=== PATIENT | female | born 1940 | race Caucasian/White ===

== ENCOUNTER 2018-03-25 08:35 | Day surgery (SDC) | payer BC, MEDICARE ==
[~2018-03-25 08:35] MED LIST: Acetaminophen TAB* 325 MG PO PRN; Buffered Lidocaine 0.9% SYRIN* 5 ML/SYR SYRINGE INTRADERM ONE
[2018-03-25] MEDS ORDERED: fentaNYL* 50 MCG/ML 2 ML VIAL (100 MCG VIAL) ONE (09:29)
[2018-03-25] MEDS ORDERED: Midazolam* 1 MG/ML 2 ML VIAL (2 MG) ONE ×2 (09:29→10:36)
[2018-03-25 11:47] VITALS: BP 138/76
[2018-03-25] MEDS ORDERED: Cyclopentolate 1% OPTH.SOL* 2 ML BTL ONE (12:53)
[2018-03-25] MEDS ORDERED: acetaZOLAMIDE TAB* 250 MG ONE (12:53)
[2018-03-25] MEDS ORDERED: Lidocaine 1%* 5 ML VIAL ONE (12:53)
[2018-03-25] MEDS ORDERED: Tetracaine 0.5% OPTH.SOL 4 ML* 1 DROP BTL ONE (12:54)
[2018-03-25] MEDS ORDERED: Tropicamide 1% OPTH.SOL* BTL ONE (12:54)
[2018-03-25] MEDS ORDERED: Ketorolac 0.5% OPHTH (NF) 0.5 % 5 ML BTL ONE (12:54)
[2018-03-25] MEDS ORDERED: Povidone Iodine 5% OPTH* 30 ML BTL ONE (12:54)
[2018-03-25] MEDS ORDERED: Neomycin/Polymy/Dex OPHTH.OIN* 3.5 GM ONE (12:54)
[2018-03-25] MEDS ORDERED: Phenylephrine 2.5% OPTH.SOL* 2 ML BTL ONE (12:54)
--- NOTE | 2018-03-25 22:03 | OP ---
DATE OF OPERATION: 03/25/18 - [facility] DATE OF : 42 SURGEON: Santi Aviles MD ANESTHESIA: Monitored anesthesia care. PREOPERATIVE DIAGNOSIS: Cataract, right eye with astigmatism. POSTOPERATIVE DIAGNOSIS: Cataract, right eye with astigmatism. OPERATIVE PROCEDURE: Extracapsular cataract extraction of the right eye with intraocular lens implant. IMPLANT: [id number] 26.5 diopter lens at 174 degrees to the right eye. COMPLICATIONS: None. DESCRIPTION OF PROCEDURE: The patient was given phenylephrine 2.5 % and cyclopentolate 1% eye drops to the operative eye in the preoperative area. With the patient sitting in upright position, corneal markings were placed to assist in toric lens placement. The patient was taken to the operating room, where a time- out was taken to identify the correct patient, site, and side of surgery. The patient's right eye was prepped and draped in the usual sterile fashion with 5% Betadine. A second time-out was taken to verify the correct patient, site, and side of surgery and correct lens implant. A lid speculum was placed to the right eye. Corneal markings were then placed at 174 degrees. A 1 mm paracentesis blade was used to make a clear corneal incision in the superotemporal position. Preservative-free 1% lidocaine was injected into the anterior chamber. DisCoVisc was then injected into the anterior chamber. A 2.75 mm keratome blade was used to make a triplanar incision at the inferotemporal position. A cystotome initiated a capsulorrhexis which was completed with Utrata forceps in a continuous and curvilinear manner. Hydrodissection of the lens was performed with BSS on a cannula. The lens could be spun in a capsular bag. The phacoemulsification handpiece was used with a [id number]-lup-[id number] technique to remove the nucleus with 9.29 CDE. The I/ A handpiece then removed the residual cortical lens material. DisCoVisc was then injected to inflate the capsular bag. The planned SN6AT9 26.5 diopter lens was then injected into the capsular bag and rotated to 174 degrees. The residual DisCoVisc was removed from the eye with the I/A handpiece. The corneal incisions were hydrated and no leaks occurred at physiologic pressure around 20 mmHg per palpation. The lid speculum was removed and drapes were removed. Maxitrol ointment was placed to the surface of the operative eye. An adhesive patch and shield was then placed on the operative eye. The patient was taken to the postoperative area in stable condition. [id number]/[facility] #: [id number] MTDD
== END 2018-03-25 11:20 | disposition home or self-care (01) ==
LOC: OREAST 08:35
PROVIDERS: ATTEND Student in an Organized Health Care Education/Training Program
DX: H25.11 Age-related nuclear cataract, right eye (principal); Z87.891 Personal history of nicotine dependence; E03.9 Hypothyroidism, unspecified; J30.89 Other allergic rhinitis
CPT/HCPCS: A9270-GY; J2250; J3010; V2787

== ENCOUNTER 2018-04-22 09:07 | Day surgery (SDC) | payer BC, MEDICARE ==
[2018-04-22] MEDS ORDERED: Midazolam* 1 MG/ML 2 ML VIAL (2 MG) ONE ×2 (10:11→10:42)
[2018-04-22 11:15] VITALS: BP 155/75
[2018-04-22] MEDS ORDERED: Lidocaine 1%* 5 ML VIAL ONE (13:37)
[2018-04-22] MEDS ORDERED: Tetracaine 0.5% OPTH.SOL 4 ML* 1 DROP BTL ONE (13:37)
[2018-04-22] MEDS ORDERED: Tropicamide 1% OPTH.SOL* BTL ONE (13:37)
[2018-04-22] MEDS ORDERED: Povidone Iodine 5% OPTH* 30 ML BTL ONE (13:37)
[2018-04-22] MEDS ORDERED: Neomycin/Polymy/Dex OPHTH.OIN* 3.5 GM ONE (13:37)
[2018-04-22] MEDS ORDERED: Phenylephrine 2.5% OPTH.SOL* 2 ML BTL ONE (13:37)
[2018-04-22] MEDS ORDERED: acetaZOLAMIDE TAB* 250 MG ONE (13:37)
[2018-04-22] MEDS ORDERED: Cyclopentolate 1% OPTH.SOL* 2 ML BTL ONE (13:37)
--- NOTE | 2018-04-22 22:26 | OP ---
DATE OF OPERATION: 04/22/18 - [facility] DATE OF : 42 SURGEON: Santi Aviles MD ANESTHESIA: Monitored anesthesia care. PRE-OP DIAGNOSIS: Cataract, left eye, with stigmatism. POST-OP DIAGNOSIS: Cataract, left eye, with stigmatism. OPERATIVE PROCEDURE: Extracapsular cataract extraction of the left eye with intraocular lens implant. IMPLANT: [id number] 27.5 diopter lens at 178 degrees to the left eye. COMPLICATIONS: None. DESCRIPTION OF PROCEDURE: The patient was given phenylephrine 2.5% and cyclopentolate 1% eye drops to the operative eye in the preoperative area. The patient was sat in the upright position and corneal markings were placed to facilitate toric lens placement. The patient was taken to the operating room where a time-out was taken to identify the correct patient, site, and side of surgery. The patient's left eye was prepped and draped in the usual sterile fashion with 5% Betadine. A second time-out was taken to verify the correct patient, site and side of surgery and correct lens implant. A lid speculum was placed to the left eye. Corneal markings were then placed at 178-degree meridian using a toric combatant diver officer. A 1-mm paracentesis blade was used to make a clear corneal incision in the inferotemporal position. Preservative-free 1% lidocaine was injected into the anterior chamber. DisCoVisc was then injected into the anterior chamber. A 2.75- mm keratome blade was used to make a triplanar incision at the superotemporal position. A cystotome initiated a capsulorrhexis which was completed with Utrata forceps in a continuous and curvilinear manner. Hydrodissection of the lens was performed with BSS on a cannula. The lens could be spun in the capsular bag. The phacoemulsification handpiece was used with a iyeibg-dkm-hkfwbeu technique to remove the nucleus with 14.70 CDE. The I/A handpiece then removed the residual cortical lens material. DisCoVisc was injected to inflate the capsular bag. The planned SN6AT9 27.5 diopter lens was then injected in the capsular bag and rotated to 178 degrees. The residual DisCoVisc was removed from the eye with the I/A handpiece. The corneal incisions were hydrated and no leaks occurred at physiologic pressure around 20 mmHg. The lens was again confirmed to be at 178 degrees. The lid speculum was removed and drapes removed. Maxitrol ointment was placed to the surface of the operative eye. An adhesive patch and shield was then placed on the operative eye. The patient was taken to the postoperative area in stable condition. [id number]/[facility] #: [id number] MTDD
== END 2018-04-22 11:15 | disposition home or self-care (01) ==
LOC: OREAST 09:07
PROVIDERS: ATTEND Student in an Organized Health Care Education/Training Program
DX: H25.12 Age-related nuclear cataract, left eye (principal); H52.202 Unspecified astigmatism, left eye; Z87.891 Personal history of nicotine dependence; E78.00 Pure hypercholesterolemia, unspecified; E03.9 Hypothyroidism, unspecified; I10 Essential (primary) hypertension; K21.9 Gastro-esophageal reflux disease without esophagitis
CPT/HCPCS: A9270-GY; J2250; V2787